=== PATIENT | female | born 1990 | race Asian ===

== ENCOUNTER 2022-07-28 11:53 | Inpatient (IN) | payer OTHER ==
[~2022-07-28] VITALS: Ht 166 cm; Wt 78.5 kg
[2022-07-28] VITALS (53 sets, daily range): BP systolic 101–143; BP diastolic 55–81
[2022-07-28 12:48] LABS: BASOPHILS # (AUTO) 0.1 10^3/uL (0.0-0.1); BASOPHILS % (AUTO) 0 % (0-10); EOSINOPHILS # (AUTO) 0.1 10^3/uL (0.0-0.3); EOSINOPHILS % (AUTO) 0 % (0-10); HEMATOCRIT 42 % (35-52); HEMOGLOBIN 14.4 g/dL (11.5-16.0); LYMPHOCYTES # (AUTO) 1.5 10^3/uL (1.0-4.0); LYMPHOCYTES % (AUTO) 11 % (12-44); MEAN CORPUSCULAR HEMOGLOBIN 32 pg (25-34); MEAN CORPUSCULAR HGB CONC 35 g/dL (32-36); MEAN CORPUSCULAR VOLUME 94 fL (80-99); MEAN PLATELET VOLUME 11.6 fL (9.0-12.2); MONOCYTES # (AUTO) 0.7 10^3/uL (0.0-1.0); MONOCYTES % (AUTO) 5 % (0-12); NEUTROPHILS % (AUTO) 83 % (42-75); PLATELET COUNT 200 10^3/uL (130-400); WHITE BLOOD COUNT 14.5 10^3/uL (4.3-11.0)
[2022-07-28] MEDS ORDERED: D5 LR IV SOLUTION 1,000 ML IV ONE (13:07)
--- NOTE | 2022-07-28 15:15 | History & Physical-OB ---
OB - Chief Complaint & HPI Date/Time Date of Admission: Date of Admission: Jul 28, 2022 at 12:16 Date seen by a Provider: Jul 28, 2022 Time Seen by a Provider: 14:45 Chief Complaint/History OB-Reason for Admission/Chief: Onset of Labor Hx : 1 Hx Para: 0 Expected Date of Delivery: Jul 27, 2022 Gestational Age in Weeks: 40 Gestational Age in Days: 1 History of Labs A+, Ab neg, Rub Imm HIV/RPR/HepB/C NR Normal 1 hr GTT GBS neg Allergies and Home Medications Allergies Coded Allergies: No Known Drug Allergies (Unverified , 07/28/22) Patient Home Medication List Home Medication List Reviewed: Yes OB - History Hx of Present Care: Yes Ultrasounds: Normal mid trimester US, Other (Weekly BPPs chava 36 weeks for Small fundal height for gestational age) Obstetrical Complications: Other (Small Fundal height for gestational age, 10%) Medical Complications: None Obstetrical History Hx : 1 Patient Past Medical History None Social History/Family History Alcohol Use: Denies Use Recreational Drug Use: No Smoking Cessation: Never smoker Immunizations Influenza Vaccine Up-to-Date: No; Not Current Hepatitis A: No Hepatitis B: No Tetanus Booster (TDap): Less than 5yrs Rubella: immune RPR/VDRL: Negative GBS Status: Negative HBsAG: Negative OB - Admission Exam Physical Exam Vitals: Vital Signs 07/28/22 07/28/22 13:10 13:45 Temp 36.4 Pulse 58 Resp 20 B/P (MAP) 115/71 (86) Pulse Ox 96 O2 Delivery Room Air HEENT: NCAT Lungs: Clear Abdomen: Gravid Cervical Dilatation: 8cm Effacement: 100% Station: -1 Membranes: Intact Accelerations: Accelerations Present Decelerations: No Decelerations Short Term Variability: Present Material Yard Clerk Variability: Average (6-25) Contractions on Admission: < 5 Minutes Apart Intensity: Firm Labs Laboratory Tests Test 07/28/22 12:35 Range/Units White Blood Count 14.5 H 4.3-11.0 10^3/uL Red Blood Count 4.45 3.80-5.11 10^6/uL Hemoglobin 14.4 11.5-16.0 g/dL Hematocrit 42 35-52 % Mean Corpuscular Volume 94 80-99 fL Mean Corpuscular Hemoglobin 32 25-34 pg Mean Corpuscular Hemoglobin Concent 35 32-36 g/dL Red Cell Distribution Width 12.3 10.0-14.5 % Platelet Count 200 130-400 10^3/uL Mean Platelet Volume 11.6 9.0-12.2 fL Immature Granulocyte % (Auto) 1 % Neutrophils (%) (Auto) 83 H 42-75 % Lymphocytes (%) (Auto) 11 L 12-44 % Monocytes (%) (Auto) 5 0-12 % Eosinophils (%) (Auto) 0 0-10 % Basophils (%) (Auto) 0 0-10 % Neutrophils # (Auto) 12.0 H 1.8-7.8 10^3/uL Lymphocytes # (Auto) 1.5 1.0-4.0 10^3/uL Monocytes # (Auto) 0.7 0.0-1.0 10^3/uL Eosinophils # (Auto) 0.1 0.0-0.3 10^3/uL Basophils # (Auto) 0.1 0.0-0.1 10^3/uL Immature Granulocyte # (Auto) 0.1 0.0-0.1 10^3/uL OB - Assessment/Plan/Diagnosis Assessment Assessment: active labor Admission Dx Third Trimester 40 week gestation 10% growth Admission Status: Inpatient Order (span 2 midnights) Reason for Inpatient Admission: Labor Plan Other Plan 31 yo G1 @ 40.1 wga here in active labor Plan - Expectant management - GBS neg - AROM 1455, Clear Copy Copies To 1: ZABRINA COSTELLO MD, HOLLY R MD Jul 28, 2022 15:15
[2022-07-28] MEDS ORDERED: OXYTOCIN PRE-MIX DRIP 500 ML IV ONE ×2 (16:31→23:57)
[2022-07-28] MEDS ORDERED: LIDOCAINE/EPI 2% 1:200,00 (XYLOCAINE) 10 ML VIAL ONE (16:31)
[2022-07-28] MEDS ORDERED: MINERAL OIL 30 ML UDC TOP PRN (16:45)
[2022-07-28] MEDS: D5 LR IV SOLUTION 1,000 ML IV SCH ×2 (16:45→20:35)
[2022-07-28] MEDS ORDERED: LIDOCAINE/EPI 2% 1:200,00 (XYLOCAINE) 10 ML VIAL INJ PRN (16:45)
[2022-07-28] MEDS ORDERED: fentaNYL INJ 100 MCG/2 ML AMP ONE (18:04)
[2022-07-28] MEDS ORDERED: BUPIVACAINE 0.25% 30 ML (SENSORCAINE) VIAL ONE (18:04)
[2022-07-28] MEDS ORDERED: fentaNYL 2 mcg/ml BUPIVA 0.125 100 ML ONE (18:13)
[2022-07-28] MEDS ORDERED: NALOXONE 0.4 MG/ML 1 ML (NARCAN) VIAL IV PRN (18:45)
[2022-07-28] MEDS ORDERED: ONDANSETRON 4 MG/2 ML (SDV) Z0FRAN IV PRN (18:45)
[2022-07-28] MEDS ORDERED: diphenhydrAMINE 50 MG/ML INJ (BENADRYL) IV PRN (18:45)
[2022-07-28] MEDS ORDERED: LACTATED RINGERS 1,000 ML IV SCH (18:45)
[2022-07-28] MEDS ORDERED: fentaNYL 2 mcg/ml BUPIVA 0.125 100 ML EPI SCH (18:45)
[2022-07-28] MEDS ORDERED: OXYTOCIN PRE-MIX DRIP 500 ML IV SCH (19:15)
[2022-07-28] MEDS ORDERED: CATHETER FLUSH 10 ML SYR IV SCH (22:00)
[2022-07-29] VITALS (12 sets, daily range): BP systolic 94–129; BP diastolic 58–68
[2022-07-29] MEDS ORDERED: BENZOCAINE/MENTHOL (DERMOPLAST) 56 ML CAN TP PRN
[2022-07-29] MEDS ORDERED: MEASLES,MUMPS,RUBELLA 1 EA INJ SQ ONE
[2022-07-29] MEDS ORDERED: TETANUS,DIPTH,PERTUSS P/F (BOOSTRIX) 0.5 ML VIAL IM ONE
[2022-07-29] MEDS ORDERED: OXYTOCIN PRE-MIX DRIP 500 ML IV SCH
--- NOTE | 2022-07-29 00:26 | OB Labor & Delivery Record ---
Vag Delivery Note Vag Delivery Note Date of Delivery: 07/29/22 Preoperative Diagnosis: Sonia Mcrae is a (31 /Para 1 / 0,Gestational Age (wks)40.1 here in active labor Postoperative Diagnosis: Same Surgeon: ZABRINA COSTELLO MD Reinforcing Metal Worker: Aj Cruz MS3 Anesthesia: Epidural Delivery Type: @ 2343 Findings: Viable female infant, apgars 8/9, weight 6#14, Lacerations: 2nd degree perineal and a left labial abrasion Intact placenta with 3 vessel cord. No nuchal cord, body cord or shoulder dystocia Estimated Blood Loss: 100 ml Complications: None Condition: Stable Description of Procedure: The patient is a 31 year old female who presented in active labor. She was admitted and informed consent was obtained. Her labor course was remarkable for a near compound presentation with right fist near face and maternal fatigue re sulting in vaccum assisted vaginal delivery She progressed to complete dilatation and began to push. She was then set up for delivery. The infant's head was delivered via vaccum assisted vaginal delivery after due to maternal fatigue in STEF[place]IA with one push while vaccum was applied. The shoulders and remainder of the 's body were then delivered without difficulty. Upon delivery, the head was held below the level of the perineum and the mouth and nares were bulb suctioned. The cord was doubly clamped and cut by FOB after 2 min delay and the was attended to by the pediatric staff on maternal abdomen. An intact placenta with 3-vessel cord delivered via Anthony and there was found to be minimal bleeding.~ Vigorous fundal massage was performed and the fundus was found to be firm. IV oxytocin was given. Examination of the vagina and perineum revealed a 2nd degree lacer ation and left labial abrasion repaired in the usual fashion with 3-0 vicryl suture. Following the repair, sponge, instrument and needle counts were correct. Mom and baby were both in stable condition in the labor suite. Vitals - Labs Vital Signs - I&O Vital Signs Date Time Temp Pulse Resp B/P (MAP) Pulse Ox O2 Delivery O2 Flow Rate FiO2 07/28/22 19:40 64 109/69 (82) Room Air 07/28/22 19:36 36.4 59 20 113/68 (83) 98 Room Air 07/28/22 19:32 75 106/72 (83) Room Air 07/28/22 19:28 67 106/67 (80) Room Air 07/28/22 19:24 66 18 104/64 (77) 97 Room Air 07/28/22 19:20 68 18 109/69 (82) 97 Room Air 07/28/22 19:16 60 108/67 (81) 98 Room Air 07/28/22 19:12 62 109/70 (83) Room Air 07/28/22 19:08 62 108/65 (79) 98 Room Air 07/28/22 19:04 61 105/59 (74) 98 Room Air 07/28/22 19:00 62 113/62 (79) 98 Room Air 07/28/22 18:51 59 20 119/71 (87) 100 Room Air 07/28/22 18:47 56 20 114/64 (81) 100 Room Air 07/28/22 18:45 53 20 113/64 (80) 98 Room Air 07/28/22 18:40 57 20 112/61 (78) 98 Room Air 07/28/22 18:33 65 20 112/58 (76) 98 Room Air 07/28/22 18:28 66 20 115/65 (82) 99 Room Air 07/28/22 18:20 67 20 136/69 (91) 99 Room Air 07/28/22 18:05 37.2 69 20 106/60 (75) 96 Room Air 07/28/22 17:48 76 20 111/66 (81) 96 Room Air 07/28/22 17:30 65 20 121/81 (94) 96 Room Air 07/28/22 17:15 75 20 127/72 (90) 96 Room Air 07/28/22 17:00 57 20 101/58 (72) 96 Room Air 07/28/22 16:45 55 20 107/69 (82) 96 Room Air 07/28/22 16:30 63 20 101/58 (72) Room Air 07/28/22 16:15 77 20 117/66 (83) Room Air 07/28/22 16:00 58 20 109/58 (75) Room Air 07/28/22 15:45 68 20 128/75 (92) Room Air 07/28/22 15:30 62 20 121/80 (94) Room Air 07/28/22 15:15 80 20 124/79 (94) Room Air 07/28/22 15:00 63 20 124/72 (89) Room Air 07/28/22 14:45 62 20 124/76 (92) Room Air 07/28/22 14:30 63 20 114/58 (76) Room Air 07/28/22 14:15 57 20 127/80 (96) Room Air 07/28/22 13:45 58 20 115/71 (86) 96 Room Air 07/28/22 13:30 63 20 112/67 (82) 96 Room Air 07/28/22 13:10 36.4 68 20 126/78 (94) 96 Room Air I & O 07/29/22 07:00 Intake Total 1000 ml Balance 1000 ml Labs Laboratory Tests 07/28/22 12:35: White Blood Count 14.5H, Red Blood Count 4.45, Hemoglobin 14.4, Hematocrit 42, Mean Corpuscular Volume 94, Mean Corpuscular Hemoglobin 32, Mean Corpuscular Hemoglobin Concent 35, Red Cell Distribution Width 12.3, Platelet Count 200, Mean Platelet Volume 11.6, Immature Granulocyte % (Auto) 1, Neutrophils (%) (Auto) 83H, Lymphocytes (%) (Auto) 11L, Monocytes (%) (Auto) 5, Eosinophils (%) (Auto) 0, Basophils (%) (Auto) 0, Neutrophils # (Auto) 12.0H, Lymphocytes # (Auto) 1.5, Monocytes # (Auto) 0.7, Eosinophils # (Auto) 0.1, Basophils # (Auto) 0.1, Immature Granulocyte # (Auto) 0.1, Syphilis Serology Non-Reactive ZABRINA COSTELLO MD Jul 29, 2022 00:26
[2022-07-29] MEDS: WITCH HAZEL(TUCKS) 40 EA JAR TOP PRN (00:37)
[2022-07-29] MEDS ORDERED: KETOROLAC 30 MG/ML VIAL ONE (00:45)
[2022-07-29] MEDS ORDERED: ACETAMINOPHEN 500 MG TAB (TYLENOL) ONE (00:45)
[2022-07-29] MEDS ORDERED: KETOROLAC 30 MG/ML VIAL IVP ONE (00:45)
[2022-07-29] MEDS: ACETAMINOPHEN 500 MG TAB (TYLENOL) PO PRN ×3 (00:55→21:23)
[2022-07-29] MEDS: IBUPROFEN 600 MG (MOTRIN) TAB PO SCH ×4 (06:13→18:48)
[2022-07-29 06:26] LABS: BASOPHILS # (AUTO) 0.1 10^3/uL (0.0-0.1); BASOPHILS % (AUTO) 0 % (0-10); EOSINOPHILS % (AUTO) 0 % (0-10); HEMATOCRIT 34 % (35-52); HEMOGLOBIN 11.9 g/dL (11.5-16.0); LYMPHOCYTES # (AUTO) 1.1 10^3/uL (1.0-4.0); LYMPHOCYTES % (AUTO) 4 % (12-44); MEAN CORPUSCULAR HEMOGLOBIN 33 pg (25-34); MEAN CORPUSCULAR HGB CONC 36 g/dL (32-36); MEAN CORPUSCULAR VOLUME 93 fL (80-99); MEAN PLATELET VOLUME 11.5 fL (9.0-12.2); MONOCYTES # (AUTO) 1.6 10^3/uL (0.0-1.0); MONOCYTES % (AUTO) 6 % (0-12); NEUTROPHILS # (AUTO) 24.9 10^3/uL (1.8-7.8); NEUTROPHILS % (AUTO) 89 % (42-75); PLATELET COUNT 181 10^3/uL (130-400); WHITE BLOOD COUNT 27.9 10^3/uL (4.3-11.0)
[2022-07-29] MEDS: CATHETER FLUSH 10 ML SYR IV SCH ×2 (06:30→14:00)
[2022-07-29] MEDS: DOCUSATE SODIUM 100 MG (COLACE) CAP PO SCH ×2 (09:03→21:22)
[2022-07-29] MEDS: PRENATAL VITAMIN 1 EA TAB PO SCH (09:03)
--- NOTE | 2022-07-29 10:04 | Progress Note ---
Subjective Subjective/Events-last exam Breast feeding going well. Pain and lochia appropriate. Objective Exam Last Set of Vital Signs Vital Signs Date Time Temp Pulse Resp B/P (MAP) Pulse Ox O2 Delivery O2 Flow Rate FiO2 07/29/22 09:08 36.9 57 18 107/61 (76) 99 Room Air 07/28/22 23:35 15.00 Capillary Refill : I&O Intake and Output 07/29/22 00:00 Intake Total 1000 ml Balance 1000 ml Intake IV Total 1000 ml Daily Weight Change No General: Alert, Oriented X3, Cooperative Psych/Mental Status: Mood NL Results/Procedures Lab Laboratory Tests 07/28/22 12:35: White Blood Count 14.5H, Red Blood Count 4.45, Hemoglobin 14.4, Hematocrit 42, Mean Corpuscular Volume 94, Mean Corpuscular Hemoglobin 32, Mean Corpuscular Hemoglobin Concent 35, Red Cell Distribution Width 12.3, Platelet Count 200, Mean Platelet Volume 11.6, Immature Granulocyte % (Auto) 1, Neutrophils (%) (Auto) 83H, Lymphocytes (%) (Auto) 11L, Monocytes (%) (Auto) 5, Eosinophils (%) (Auto) 0, Basophils (%) (Auto) 0, Neutrophils # (Auto) 12.0H, Lymphocytes # (Auto) 1.5, Monocytes # (Auto) 0.7, Eosinophils # (Auto) 0.1, Basophils # (Auto) 0.1, Immature Granulocyte # (Auto) 0.1, Syphilis Serology Non-Reactive 07/29/22 06:00: White Blood Count 27.9H, Red Blood Count 3.59L, Hemoglobin 11.9, Hematocrit 34L, Mean Corpuscular Volume 93, Mean Corpuscular Hemoglobin 33, Mean Corpuscular Hemoglobin Concent 36, Red Cell Distribution Width 12.3, Platelet Count 181, Mean Platelet Volume 11.5, Immature Granulocyte % (Auto) 1, Neutrophils (%) (Auto) 89H, Lymphocytes (%) (Auto) 4L, Monocytes (%) (Auto) 6, Eosinophils (%) (Auto) 0, Basophils (%) (Auto) 0, Neutrophils # (Auto) 24.9H, Lymphocytes # (Auto) 1.1, Monocytes # (Auto) 1.6H, Eosinophils # (Auto) 0.0, Basophils # (Auto) 0.1, Immature Granulocyte # (Auto) 0.3H Assessment/Plan Assessment/Plan Assessment & Plan PPD #1 s/p VAVD w/ second degree laceration repair. Leukocytosis w/o sign/symptoms of infection Routine care. Repeat cbc in am. Anticipate DC home tomorrow. ROSALINDA STANLEY DO Jul 29, 2022 10:04
--- NOTE | 2022-07-29 12:57 | Anesthesia-Regional Post-Op ---
Regional Patient Condition Mental Status: Alert, Oriented x3 Circulation: Same as Pre-Op Headache: Absent Sensation: Full Recovery Motor Block: Absent Post Op Complications Complications None Follow Up Care/Instructions Patient Instructions None needed. Anesthesia/Patient Condition Patient is doing well, no complaints, stable vital signs, no apparent adverse anesthesia problems. No complications reported per nursing. HUSSEIN HAN CRNA Jul 29, 2022 12:57
[2022-07-30] MEDS: IBUPROFEN 600 MG (MOTRIN) TAB PO SCH ×2 (00:49→07:28)
[2022-07-30 05:00] VITALS: BP 117/68
[2022-07-30 06:21] LABS: BASOPHILS # (AUTO) 0.1 10^3/uL (0.0-0.1); BASOPHILS % (AUTO) 0 % (0-10); EOSINOPHILS # (AUTO) 0.3 10^3/uL (0.0-0.3); EOSINOPHILS % (AUTO) 2 % (0-10); HEMATOCRIT 34 % (35-52); HEMOGLOBIN 11.5 g/dL (11.5-16.0); LYMPHOCYTES # (AUTO) 2.4 10^3/uL (1.0-4.0); LYMPHOCYTES % (AUTO) 14 % (12-44); MEAN CORPUSCULAR HEMOGLOBIN 33 pg (25-34); MEAN CORPUSCULAR HGB CONC 34 g/dL (32-36); MEAN CORPUSCULAR VOLUME 96 fL (80-99); MEAN PLATELET VOLUME 11.4 fL (9.0-12.2); MONOCYTES # (AUTO) 0.9 10^3/uL (0.0-1.0); MONOCYTES % (AUTO) 5 % (0-12); NEUTROPHILS # (AUTO) 12.9 10^3/uL (1.8-7.8); NEUTROPHILS % (AUTO) 78 % (42-75); PLATELET COUNT 168 10^3/uL (130-400); WHITE BLOOD COUNT 16.6 10^3/uL (4.3-11.0)
[2022-07-30 07:23] LABS: EOSINOPHILS % (MANUAL) 2 %; LYMPHOCYTES % (MANUAL) 12 %; MONOCYTES % (MANUAL) 2 %; NEUTROPHILS % (MANUAL) 84 %; RBC MORPH NORMAL
[2022-07-30] MEDS: PRENATAL VITAMIN 1 EA TAB PO SCH (07:28)
[2022-07-30 07:30] VITALS: BP 123/79
--- NOTE | 2022-07-30 08:57 | Short Stay Summary ---
Discharge Summary Hospital Course Final Diagnosis: s/p Hospital Course Date of Admission: Jul 28, 2022 at 12:16 Admission Diagnosis : spontaneous labor at 40w1d Family Physician/Provider: Mojgan Weir MD Date of Discharge: 07/30/22 Discharge Diagnosis: [ ] PPD #2 s/p VAVD w/ second degree laceration repair. Leukocytosis w/o sign/symptoms of infection - improving Hospital Course: Routine care. wbc pre-delivery 14.5, post-delivery 27.9, repeat 16.6 Labs and Pending Lab Test: Laboratory Tests 07/28/22 12:35: White Blood Count 14.5H, Red Blood Count 4.45, Hemoglobin 14.4, Hematocrit 42, Mean Corpuscular Volume 94, Mean Corpuscular Hemoglobin 32, Mean Corpuscular Hemoglobin Concent 35, Red Cell Distribution Width 12.3, Platelet Count 200, Mean Platelet Volume 11.6, Immature Granulocyte % (Auto) 1, Neutrophils (%) (Auto) 83H, Lymphocytes (%) (Auto) 11L, Monocytes (%) (Auto) 5, Eosinophils (%) (Auto) 0, Basophils (%) (Auto) 0, Neutrophils # (Auto) 12.0H, Lymphocytes # (Auto) 1.5, Monocytes # (Auto) 0.7, Eosinophils # (Auto) 0.1, Basophils # (Auto) 0.1, Immature Granulocyte # (Auto) 0.1, Syphilis Serology Non-Reactive 07/29/22 06:00: White Blood Count 27.9H, Red Blood Count 3.59L, Hemoglobin 11.9, Hematocrit 34L, Mean Corpuscular Volume 93, Mean Corpuscular Hemoglobin 33, Mean Corpuscular Hemoglobin Concent 36, Red Cell Distribution Width 12.3, Platelet Count 181, Mean Platelet Volume 11.5, Immature Granulocyte % (Auto) 1, Neutrophils (%) (Auto) 89H, Lymphocytes (%) (Auto) 4L, Monocytes (%) (Auto) 6, Eosinophils (%) (Auto) 0, Basophils (%) (Auto) 0, Neutrophils # (Auto) 24.9H, Lymphocytes # (Auto) 1.1, Monocytes # (Auto) 1.6H, Eosinophils # (Auto) 0.0, Basophils # (Auto) 0.1, Immature Granulocyte # (Auto) 0.3H 07/30/22 06:10: White Blood Count 16.6H, Red Blood Count 3.53L, Hemoglobin 11.5, Hematocrit 34L, Mean Corpuscular Volume 96, Mean Corpuscular Hemoglobin 33, Mean Corpuscular Hemoglobin Concent 34, Red Cell Distribution Width 12.7, Platelet Count 168, Mean Platelet Volume 11.4, Immature Granulocyte % (Auto) 1, Neutrophils (%) (Auto) 78H, Lymphocytes (%) (Auto) 14, Monocytes (%) (Auto) 5, Eosinophils (%) (Auto) 2, Basophils (%) (Auto) 0, Neutrophils # (Auto) 12.9H, Lymphocytes # (Auto) 2.4, Monocytes # (Auto) 0.9, Eosinophils # (Auto) 0.3, Basophils # (Auto) 0.1, Immature Granulocyte # (Auto) 0.1, Neutrophils % (Manual) 84, Lymphocytes % (Manual) 12, Monocytes % (Manual) 2, Eosinophils % (Manual) 2, Blood Morphology Comment NORMAL Assessment/Pt Instructions follow up with Dr. Weir in 6wk Discharge Instructions Discharge Diet: No Restrictions Discharge Physical Examination General Appearance: Alert, Oriented X3, Cooperative Psych/Mental Status: Mood NL Allergies: Coded Allergies: No Known Drug Allergies (Unverified , 07/28/22) Discharge Summary Date of Admission Jul 28, 2022 at 12:16 Date of Discharge ROSALINDA STANLEY DO Jul 30, 2022 08:57
[2022-07-30] MEDS: DOCUSATE SODIUM 100 MG (COLACE) CAP PO SCH (09:15)
[2022-07-30] MEDS: WITCH HAZEL(TUCKS) 40 EA JAR TOP PRN (10:04)
[2022-07-30 12:55] VITALS: BP 123/79
== END 2022-07-30 13:08 | disposition home or self-care (01) | DRG 807 ==
LOC: WSo 11:53 → LDRP 11:53 → WSo 12:16 → LDRP 07-29 03:00
PROVIDERS: ADMIT Family Medicine; ATTEND Family Medicine
PROC: 10D07Z6 Extraction of Products of Conception, Vacuum, Via Natural or Artificial Opening (ICD-10-PCS; principal; 2022-07-29)
PROC: 0KQM0ZZ Repair Perineum Muscle, Open Approach (ICD-10-PCS; 2022-07-29)
DX: O48.0 Post-term pregnancy (principal); Z37.0 Single live birth; O70.1 Second degree perineal laceration during delivery; O75.81 Maternal exhaustion complicating labor and delivery; Z3A.40 40 weeks gestation of pregnancy
CPT/HCPCS: 36415; 85007; 85025; 85027; 86780; 86850; 86900; 86901; 99212